=== PATIENT | male | born 1950 | race Two or more races ===

== ENCOUNTER 2017-11-08 08:02 | Outpatient (CLI) | payer OTHER | END 2017-11-08 08:12 | disposition home or self-care (01) | LOC: LAB 08:02 | DX: D72.1 Eosinophilia (principal); D51.3 Other dietary vitamin B12 deficiency anemia; K51.419 Inflammatory polyps of colon with unspecified complications; C44.501 Unspecified malignant neoplasm of skin of breast; E04.8 Other specified nontoxic goiter; E03.8 Other specified hypothyroidism; M06.4 Inflammatory polyarthropathy; K75.89 Other specified inflammatory liver diseases; R94.5 Abnormal results of liver function studies; K76.89 Other specified diseases of liver; D50.8 Other iron deficiency anemias; I10 Essential (primary) hypertension; R97.0 Elevated carcinoembryonic antigen [CEA] ==

== ENCOUNTER 2018-03-15 08:33 | Outpatient (CLI) | payer OTHER | END 2018-03-15 09:03 | disposition home or self-care (01) | LOC: LAB 08:33 | DX: D72.1 Eosinophilia (principal); D51.3 Other dietary vitamin B12 deficiency anemia; K51.419 Inflammatory polyps of colon with unspecified complications; C44.501 Unspecified malignant neoplasm of skin of breast; E04.8 Other specified nontoxic goiter; E03.8 Other specified hypothyroidism; M06.4 Inflammatory polyarthropathy; K75.89 Other specified inflammatory liver diseases; R94.5 Abnormal results of liver function studies; D50.0 Iron deficiency anemia secondary to blood loss (chronic); D51.1 Vitamin B12 deficiency anemia due to selective vitamin B12 malabsorption with proteinuria; I10 Essential (primary) hypertension; E55.9 Vitamin D deficiency, unspecified; K90.89 Other intestinal malabsorption; R97.0 Elevated carcinoembryonic antigen [CEA]; R97.8 Other abnormal tumor markers; N34.0 Urethral abscess; K76.89 Other specified diseases of liver ==

== ENCOUNTER 2018-11-12 07:50 | Outpatient (CLI) | payer OTHER | END 2018-11-12 08:15 | disposition home or self-care (01) | LOC: LAB 07:50 | DX: D72.1 Eosinophilia (principal); D51.3 Other dietary vitamin B12 deficiency anemia; K51.419 Inflammatory polyps of colon with unspecified complications; C44.501 Unspecified malignant neoplasm of skin of breast; E04.8 Other specified nontoxic goiter; E03.8 Other specified hypothyroidism; M06.4 Inflammatory polyarthropathy; K75.89 Other specified inflammatory liver diseases; D04.21 Carcinoma in situ of skin of right ear and external auricular canal; D50.8 Other iron deficiency anemias; D51.8 Other vitamin B12 deficiency anemias; I10 Essential (primary) hypertension; R97.0 Elevated carcinoembryonic antigen [CEA]; R97.8 Other abnormal tumor markers ==

== ENCOUNTER 2019-03-18 08:01 | Outpatient (CLI) | payer OTHER | END 2019-03-18 08:09 | disposition home or self-care (01) | LOC: LAB 08:01 | DX: C44.222 Squamous cell carcinoma of skin of right ear and external auricular canal (principal); D72.1 Eosinophilia; D51.3 Other dietary vitamin B12 deficiency anemia; K51.419 Inflammatory polyps of colon with unspecified complications; C44.501 Unspecified malignant neoplasm of skin of breast; E04.8 Other specified nontoxic goiter; E03.8 Other specified hypothyroidism; M06.4 Inflammatory polyarthropathy; K75.89 Other specified inflammatory liver diseases; R94.5 Abnormal results of liver function studies; I10 Essential (primary) hypertension ==

== ENCOUNTER 2019-07-16 09:45 | Outpatient (CLI) | payer OTHER | END 2019-07-16 15:00 | disposition home or self-care (01) | LOC: LAB 09:45 | DX: C44.222 Squamous cell carcinoma of skin of right ear and external auricular canal (principal); D72.1 Eosinophilia; D51.3 Other dietary vitamin B12 deficiency anemia; K51.418 Inflammatory polyps of colon with other complication; C44.501 Unspecified malignant neoplasm of skin of breast; E04.8 Other specified nontoxic goiter; E03.8 Other specified hypothyroidism; M06.4 Inflammatory polyarthropathy; K75.89 Other specified inflammatory liver diseases; R94.5 Abnormal results of liver function studies; K76.89 Other specified diseases of liver; D50.8 Other iron deficiency anemias; D51.8 Other vitamin B12 deficiency anemias; I10 Essential (primary) hypertension; R97.0 Elevated carcinoembryonic antigen [CEA] ==

== ENCOUNTER 2020-03-04 08:21 | Outpatient (CLI) | payer OTHER | END 2020-03-04 08:24 | disposition home or self-care (01) | LOC: NUCLEAR 08:21 | PROVIDERS: ATTEND Internal Medicine Hematology & Oncology | DX: C44.222 Squamous cell carcinoma of skin of right ear and external auricular canal (principal); C72.1 Malignant neoplasm of cauda equina; Z79.52 Long term (current) use of systemic steroids; D51.3 Other dietary vitamin B12 deficiency anemia; K51.418 Inflammatory polyps of colon with other complication; C44.501 Unspecified malignant neoplasm of skin of breast; E04.8 Other specified nontoxic goiter; E03.8 Other specified hypothyroidism; M06.4 Inflammatory polyarthropathy; K75.89 Other specified inflammatory liver diseases; R94.5 Abnormal results of liver function studies; K76.89 Other specified diseases of liver | CPT/HCPCS: 78816; A9552 ==

== ENCOUNTER 2020-07-06 08:53 | Outpatient (CLI) | payer OTHER | END 2020-07-06 09:01 | disposition home or self-care (01) | LOC: LAB 08:53 | PROVIDERS: ATTEND Internal Medicine Hematology & Oncology | DX: D50.8 Other iron deficiency anemias (principal); I10 Essential (primary) hypertension; D51.8 Other vitamin B12 deficiency anemias; E78.2 Mixed hyperlipidemia; R74.8 Abnormal levels of other serum enzymes; K76.9 Liver disease, unspecified; E03.8 Other specified hypothyroidism; C44.222 Squamous cell carcinoma of skin of right ear and external auricular canal; Z79.52 Long term (current) use of systemic steroids; K51.419 Inflammatory polyps of colon with unspecified complications; C44.501 Unspecified malignant neoplasm of skin of breast; E04.8 Other specified nontoxic goiter; M06.4 Inflammatory polyarthropathy; K75.89 Other specified inflammatory liver diseases; R94.5 Abnormal results of liver function studies; K76.89 Other specified diseases of liver ==

== ENCOUNTER 2020-07-27 10:00 | Outpatient (CLI) | payer OTHER | END 2020-07-27 10:07 | disposition home or self-care (01) | LOC: LAB 10:00 | PROVIDERS: ATTEND Internal Medicine Cardiovascular Disease | DX: I11.9 Hypertensive heart disease without heart failure (principal); E78.00 Pure hypercholesterolemia, unspecified ==

== ENCOUNTER → 2020-10-22 | Outpatient (CLI) | payer OTHER | END | disposition home or self-care (01) | LOC: LAB 10:01 | PROVIDERS: ATTEND Internal Medicine Hematology & Oncology | DX: I10 Essential (primary) hypertension (principal); I25.10 Atherosclerotic heart disease of native coronary artery without angina pectoris; D50.8 Other iron deficiency anemias; R79.89 Other specified abnormal findings of blood chemistry; R74.02 Elevation of levels of lactic acid dehydrogenase [LDH]; K76.89 Other specified diseases of liver; D51.8 Other vitamin B12 deficiency anemias; E03.8 Other specified hypothyroidism; C44.222 Squamous cell carcinoma of skin of right ear and external auricular canal; D72.19 Other eosinophilia; Z79.52 Long term (current) use of systemic steroids; K51.419 Inflammatory polyps of colon with unspecified complications; C44.501 Unspecified malignant neoplasm of skin of breast; E04.8 Other specified nontoxic goiter; M06.4 Inflammatory polyarthropathy; K75.89 Other specified inflammatory liver diseases; R94.5 Abnormal results of liver function studies ==

== ENCOUNTER 2020-11-17 09:34 | Outpatient (CLI) | payer OTHER | END 2020-11-17 09:40 | disposition home or self-care (01) | LOC: LAB 09:34 | PROVIDERS: ATTEND Internal Medicine Cardiovascular Disease | DX: E11.9 Type 2 diabetes mellitus without complications (principal); E78.1 Pure hyperglyceridemia; I11.9 Hypertensive heart disease without heart failure ==

== ENCOUNTER → 2021-01-27 08:32 | Outpatient (CLI) | payer OTHER | END | disposition home or self-care (01) | LOC: LAB 08:32 | PROVIDERS: ATTEND Internal Medicine Hematology & Oncology | DX: D50.8 Other iron deficiency anemias (principal); R79.89 Other specified abnormal findings of blood chemistry; I10 Essential (primary) hypertension; R74.02 Elevation of levels of lactic acid dehydrogenase [LDH]; K76.89 Other specified diseases of liver; D51.8 Other vitamin B12 deficiency anemias; E03.8 Other specified hypothyroidism; R97.0 Elevated carcinoembryonic antigen [CEA]; R97.8 Other abnormal tumor markers; R97.20 Elevated prostate specific antigen [PSA]; C44.222 Squamous cell carcinoma of skin of right ear and external auricular canal; D72.19 Other eosinophilia; Z79.52 Long term (current) use of systemic steroids; D51.3 Other dietary vitamin B12 deficiency anemia; K51.419 Inflammatory polyps of colon with unspecified complications; C44.501 Unspecified malignant neoplasm of skin of breast; E04.8 Other specified nontoxic goiter; M06.4 Inflammatory polyarthropathy; K75.89 Other specified inflammatory liver diseases; R94.5 Abnormal results of liver function studies; I25.10 Atherosclerotic heart disease of native coronary artery without angina pectoris ==

== ENCOUNTER 2021-06-11 10:09 | Outpatient (CLI) | payer OTHER | END 2021-06-11 15:00 | disposition home or self-care (01) | LOC: LAB 10:09 | PROVIDERS: ATTEND Internal Medicine Hematology & Oncology | DX: C44.222 Squamous cell carcinoma of skin of right ear and external auricular canal (principal); D72.10 Eosinophilia, unspecified; Z79.52 Long term (current) use of systemic steroids; D51.3 Other dietary vitamin B12 deficiency anemia; K51.419 Inflammatory polyps of colon with unspecified complications; C44.501 Unspecified malignant neoplasm of skin of breast; E04.1 Nontoxic single thyroid nodule; E04.8 Other specified nontoxic goiter; E03.8 Other specified hypothyroidism; M06.4 Inflammatory polyarthropathy; K75.89 Other specified inflammatory liver diseases; R94.5 Abnormal results of liver function studies; K76.89 Other specified diseases of liver; I25.10 Atherosclerotic heart disease of native coronary artery without angina pectoris; M81.0 Age-related osteoporosis without current pathological fracture; R79.89 Other specified abnormal findings of blood chemistry; D50.8 Other iron deficiency anemias; R74.02 Elevation of levels of lactic acid dehydrogenase [LDH]; I10 Essential (primary) hypertension; D51.8 Other vitamin B12 deficiency anemias; E55.9 Vitamin D deficiency, unspecified; R97.0 Elevated carcinoembryonic antigen [CEA]; R97.8 Other abnormal tumor markers ==

== ENCOUNTER 2021-07-19 10:16 | Outpatient (CLI) | payer OTHER | END 2021-07-19 10:24 | disposition home or self-care (01) | LOC: LAB 10:16 | PROVIDERS: ATTEND Internal Medicine Cardiovascular Disease | DX: E03.8 Other specified hypothyroidism (principal); E78.2 Mixed hyperlipidemia; I11.9 Hypertensive heart disease without heart failure ==

== ENCOUNTER 2021-11-11 11:30 | Outpatient (CLI) | payer OTHER | END 2021-11-11 11:31 | disposition home or self-care (01) | LOC: LAB 11:30 | PROVIDERS: ATTEND Internal Medicine Hematology & Oncology | DX: D50.8 Other iron deficiency anemias (principal); R79.9 Abnormal finding of blood chemistry, unspecified; I10 Essential (primary) hypertension; R74.02 Elevation of levels of lactic acid dehydrogenase [LDH]; K76.89 Other specified diseases of liver; D51.8 Other vitamin B12 deficiency anemias; E03.8 Other specified hypothyroidism; R97.0 Elevated carcinoembryonic antigen [CEA]; R97.8 Other abnormal tumor markers; C44.222 Squamous cell carcinoma of skin of right ear and external auricular canal; D72.19 Other eosinophilia; Z79.52 Long term (current) use of systemic steroids; D51.3 Other dietary vitamin B12 deficiency anemia; K51.419 Inflammatory polyps of colon with unspecified complications; C44.501 Unspecified malignant neoplasm of skin of breast; E04.9 Nontoxic goiter, unspecified; M06.4 Inflammatory polyarthropathy; K75.9 Inflammatory liver disease, unspecified; R94.5 Abnormal results of liver function studies; K76.9 Liver disease, unspecified; I25.10 Atherosclerotic heart disease of native coronary artery without angina pectoris; M81.0 Age-related osteoporosis without current pathological fracture ==

== ENCOUNTER 2022-01-18 08:45 | Outpatient (CLI) | payer OTHER | END 2022-01-18 08:46 | disposition home or self-care (01) | LOC: LAB 08:45 | PROVIDERS: ATTEND Internal Medicine Cardiovascular Disease | DX: I11.9 Hypertensive heart disease without heart failure (principal); E78.00 Pure hypercholesterolemia, unspecified ==

== ENCOUNTER 2022-05-11 08:59 | Outpatient (CLI) | payer OTHER | END 2022-05-11 09:00 | disposition home or self-care (01) | LOC: LAB 08:59 | PROVIDERS: ATTEND Internal Medicine Hematology & Oncology | DX: D50.8 Other iron deficiency anemias (principal); R79.9 Abnormal finding of blood chemistry, unspecified; I10 Essential (primary) hypertension; R74.02 Elevation of levels of lactic acid dehydrogenase [LDH]; K76.89 Other specified diseases of liver; D51.8 Other vitamin B12 deficiency anemias; E55.9 Vitamin D deficiency, unspecified; E03.8 Other specified hypothyroidism; R97.0 Elevated carcinoembryonic antigen [CEA]; R97.8 Other abnormal tumor markers; R97.20 Elevated prostate specific antigen [PSA] ==

== ENCOUNTER 2022-06-01 11:25 | Outpatient (CLI) | payer OTHER | END 2022-06-01 23:00 | disposition home or self-care (01) | LOC: LAB 11:25 | PROVIDERS: ATTEND Internal Medicine Cardiovascular Disease | DX: E11.9 Type 2 diabetes mellitus without complications (principal); E78.00 Pure hypercholesterolemia, unspecified ==

== ENCOUNTER 2022-11-11 07:29 | Outpatient (CLI) | payer OTHER | END 2022-11-11 07:35 | disposition home or self-care (01) | LOC: LAB 07:29 | PROVIDERS: ATTEND Internal Medicine Hematology & Oncology | DX: D50.8 Other iron deficiency anemias (principal); R79.9 Abnormal finding of blood chemistry, unspecified; I10 Essential (primary) hypertension; R74.02 Elevation of levels of lactic acid dehydrogenase [LDH]; K76.89 Other specified diseases of liver; D51.8 Other vitamin B12 deficiency anemias; E55.9 Vitamin D deficiency, unspecified; E03.8 Other specified hypothyroidism; R97.0 Elevated carcinoembryonic antigen [CEA]; R97.8 Other abnormal tumor markers; R97.20 Elevated prostate specific antigen [PSA]; C44.222 Squamous cell carcinoma of skin of right ear and external auricular canal; D72.19 Other eosinophilia; Z79.52 Long term (current) use of systemic steroids; D51.3 Other dietary vitamin B12 deficiency anemia; K51.419 Inflammatory polyps of colon with unspecified complications; C44.501 Unspecified malignant neoplasm of skin of breast; E04.9 Nontoxic goiter, unspecified; M06.4 Inflammatory polyarthropathy; K75.9 Inflammatory liver disease, unspecified; R94.5 Abnormal results of liver function studies; K76.9 Liver disease, unspecified; I25.10 Atherosclerotic heart disease of native coronary artery without angina pectoris; M81.0 Age-related osteoporosis without current pathological fracture ==

== ENCOUNTER 2022-12-29 10:33 | Outpatient (CLI) | payer OTHER | END 2022-12-29 10:34 | disposition home or self-care (01) | LOC: LAB 10:33 | PROVIDERS: ATTEND Internal Medicine Cardiovascular Disease | DX: E78.1 Pure hyperglyceridemia (principal); I11.9 Hypertensive heart disease without heart failure ==

== ENCOUNTER 2023-04-26 08:58 | Outpatient (CLI) | payer OTHER ==
[2023-04-26 09:57] LABS: HEMATOCRIT 36.2 % (39.0-48.0); HEMOGLOBIN 12.4 g/dL (13-16.00); MEAN CELL VOLUME 92.7 fL (80.0-100.00); MEAN CORPUSCULAR HEMOGLOBIN 31.8 pg (27.00-32.0); MEAN CORPUSCULAR HGB CONC 34.3 g/dl (32.0-36.0); PLATELET COUNT 248 K/uL (150-450); RED CELL DISTRIBUTION WIDTH 13.9 % (11.5-14.5)
[2023-04-26 10:32] LABS: CALCIUM 9.7 mg/dL (8.5-10.1); CREATININE SERUM 0.58 mg/dL (0.70-1.30); GFR 136.96; POTASSIUM 4.18 mEq/L (3.5-5.1)
== END 2023-04-26 08:59 | disposition home or self-care (01) ==
LOC: LAB 08:58
PROVIDERS: ATTEND Internal Medicine Cardiovascular Disease
DX: R19.5 Other fecal abnormalities (principal)

== ENCOUNTER → 2023-04-27 08:07 | Outpatient (CLI) | payer OTHER ==
[2023-04-27 11:10] LABS: ob NEGATIVE (NEGATIVE)
== END | disposition home or self-care (01) ==
LOC: LAB 08:07
PROVIDERS: ATTEND Internal Medicine Cardiovascular Disease
DX: R19.5 Other fecal abnormalities (principal)

== ENCOUNTER → 2023-05-10 09:00 | Outpatient (CLI) | payer OTHER ==
[2023-05-10 10:33] LABS: HEMOGLOBIN 12.6 g/dL (13-16.00); MEAN CELL VOLUME 91.8 fL (80.0-100.00); MEAN CORPUSCULAR HEMOGLOBIN 31.3 pg (27.00-32.0); MEAN CORPUSCULAR HGB CONC 34.1 g/dl (32.0-36.0); PLATELET COUNT 240 K/uL (150-450); RED BLOOD COUNT 4.04 M/uL (4.00-6.00); RED CELL DISTRIBUTION WIDTH 13.8 % (11.5-14.5)
[2023-05-10 11:32] LABS: ALBUMIN 3.9 gm/dL (3.4-5.0); BILIRUBIN TOTAL 0.66 mg/dL (0.3-1.2); BILIRUBIN,CONJUGATED 0.19 mg/dL (0.0-0.2); BILIRUBIN,UNCONJUGATED 0.47 mg/dL (0.0-0.6); CALCIUM 9.7 mg/dL (8.5-10.1); CREATININE SERUM 0.62 mg/dL (0.70-1.30); GFR 126.81; POTASSIUM 3.97 mEq/L (3.5-5.1); PROSTATIC SPECIFIC ANTIGEN 0.245 NG/ML (0.010-4.00); T4 FREE 1.14 NG/ML (0.76-1.46); TOTAL PROTEIN 7.6 gm/dL (6.4-8.2); TSH 1.14 uIU/mL (0.358-3.74); VITAMIN D3 25 HYDROXY 99.31 ng/ml (30-120)
== END | disposition home or self-care (01) ==
LOC: LAB 09:00
PROVIDERS: ATTEND Internal Medicine Hematology & Oncology
DX: D50.8 Other iron deficiency anemias (principal); R79.9 Abnormal finding of blood chemistry, unspecified; I10 Essential (primary) hypertension; R74.02 Elevation of levels of lactic acid dehydrogenase [LDH]; K76.89 Other specified diseases of liver; D51.8 Other vitamin B12 deficiency anemias; E55.9 Vitamin D deficiency, unspecified; E03.8 Other specified hypothyroidism; R97.0 Elevated carcinoembryonic antigen [CEA]; R97.8 Other abnormal tumor markers; R97.20 Elevated prostate specific antigen [PSA]; C44.222 Squamous cell carcinoma of skin of right ear and external auricular canal; Z79.52 Long term (current) use of systemic steroids; D51.3 Other dietary vitamin B12 deficiency anemia; K51.419 Inflammatory polyps of colon with unspecified complications; C44.501 Unspecified malignant neoplasm of skin of breast; E04.9 Nontoxic goiter, unspecified; M06.4 Inflammatory polyarthropathy; K75.9 Inflammatory liver disease, unspecified; R94.5 Abnormal results of liver function studies; K76.9 Liver disease, unspecified; I25.10 Atherosclerotic heart disease of native coronary artery without angina pectoris; M81.0 Age-related osteoporosis without current pathological fracture

== ENCOUNTER 2023-06-09 07:38 | Outpatient (CLI) | payer OTHER | END 2023-06-09 07:40 | disposition home or self-care (01) | LOC: NUCLEAR 07:38 | PROVIDERS: ATTEND Internal Medicine Hematology & Oncology | DX: C44.222 Squamous cell carcinoma of skin of right ear and external auricular canal (principal); D72.10 Eosinophilia, unspecified; Z79.52 Long term (current) use of systemic steroids; D51.3 Other dietary vitamin B12 deficiency anemia; K51.419 Inflammatory polyps of colon with unspecified complications; C44.501 Unspecified malignant neoplasm of skin of breast; E03.8 Other specified hypothyroidism; E04.9 Nontoxic goiter, unspecified; M06.4 Inflammatory polyarthropathy; K75.9 Inflammatory liver disease, unspecified; R94.5 Abnormal results of liver function studies; K76.9 Liver disease, unspecified; I25.10 Atherosclerotic heart disease of native coronary artery without angina pectoris; M81.0 Age-related osteoporosis without current pathological fracture | CPT/HCPCS: 78816; A9552 ==

== ENCOUNTER 2023-07-10 08:10 | Outpatient (CLI) | payer OTHER ==
[2023-07-10 10:11] LABS: ob NEGATIVE (NEGATIVE)
== END 2023-07-10 08:11 | disposition home or self-care (01) ==
LOC: LAB 08:10
PROVIDERS: ATTEND Internal Medicine
DX: Z12.11 Encounter for screening for malignant neoplasm of colon (principal)

== ENCOUNTER 2023-07-10 08:36 | Outpatient (CLI) | payer OTHER | END 2023-07-10 08:46 | disposition home or self-care (01) | LOC: SONOGRAMA 08:36 | PROVIDERS: ATTEND Internal Medicine | DX: R10.84 Generalized abdominal pain (principal) ==

== ENCOUNTER 2023-07-12 12:10 | Outpatient (CLI) | payer OTHER ==
[2023-07-12 13:24] LABS: HEMATOCRIT 36.3 % (39.0-48.0); HEMOGLOBIN 12.6 g/dL (13-16.00); MEAN CELL VOLUME 93.5 fL (80.0-100.00); MEAN CORPUSCULAR HEMOGLOBIN 32.3 pg (27.00-32.0); MEAN CORPUSCULAR HGB CONC 34.6 g/dl (32.0-36.0); PLATELET COUNT 246 K/uL (150-450); RED BLOOD COUNT 3.88 M/uL (4.00-6.00); RED CELL DISTRIBUTION WIDTH 13.7 % (11.5-14.5)
[2023-07-12 14:20] LABS: ALBUMIN 4.1 gm/dL (3.4-5.0); BILIRUBIN TOTAL 0.64 mg/dL (0.3-1.2); CALCIUM 10.1 mg/dL (8.5-10.1); CHOL HDL RATIO 2.5 (0-5.0); CREATININE SERUM 0.64 mg/dL (0.70-1.30); GFR 122.25; GLOBULINA 3.6 G/DL (2.4-3.5); POTASSIUM 4.63 mEq/L (3.5-5.1); TOTAL PROTEIN 7.7 gm/dL (6.4-8.2)
== END 2023-07-12 12:14 | disposition home or self-care (01) ==
LOC: LAB 12:10
PROVIDERS: ATTEND Internal Medicine Cardiovascular Disease
DX: I11.9 Hypertensive heart disease without heart failure (principal); E11.9 Type 2 diabetes mellitus without complications; E78.1 Pure hyperglyceridemia

== ENCOUNTER → 2023-07-18 11:18 | Outpatient (CLI) | payer OTHER ==
[2023-07-18 12:11] LABS: HEMATOCRIT 36.8 % (39.0-48.0); HEMOGLOBIN 12.6 g/dL (13-16.00); MEAN CELL VOLUME 93.8 fL (80.0-100.00); MEAN CORPUSCULAR HGB CONC 34.2 g/dl (32.0-36.0); PLATELET COUNT 247 K/uL (150-450); RED BLOOD COUNT 3.92 M/uL (4.00-6.00); RED CELL DISTRIBUTION WIDTH 13.8 % (11.5-14.5)
[2023-07-18 12:34] LABS: ALBUMIN 3.9 gm/dL (3.4-5.0); BILIRUBIN TOTAL 0.65 mg/dL (0.3-1.2); BILIRUBIN,CONJUGATED 0.16 mg/dL (0.0-0.2); BILIRUBIN,UNCONJUGATED 0.49 mg/dL (0.0-0.6); CALCIUM 9.9 mg/dL (8.5-10.1); CREATININE SERUM 0.57 mg/dL (0.70-1.30); GFR 139.73; TOTAL PROTEIN 7.5 gm/dL (6.4-8.2)
[2023-07-18 13:41] LABS: FOLIC ACID > 20.00 ng/ml (4.78-20)
== END | disposition home or self-care (01) ==
LOC: LAB 11:18
PROVIDERS: ATTEND Internal Medicine Hematology & Oncology
DX: C44.222 Squamous cell carcinoma of skin of right ear and external auricular canal (principal); D72.19 Other eosinophilia; Z79.52 Long term (current) use of systemic steroids; D51.9 Vitamin B12 deficiency anemia, unspecified; K51.419 Inflammatory polyps of colon with unspecified complications; C44.501 Unspecified malignant neoplasm of skin of breast; E04.9 Nontoxic goiter, unspecified; E03.8 Other specified hypothyroidism; M06.4 Inflammatory polyarthropathy; R94.5 Abnormal results of liver function studies; K76.4 Peliosis hepatis; I25.10 Atherosclerotic heart disease of native coronary artery without angina pectoris; M81.0 Age-related osteoporosis without current pathological fracture; D72.10 Eosinophilia, unspecified

== ENCOUNTER → 2024-02-01 08:57 | Outpatient (CLI) | payer OTHER ==
[2024-02-01 09:58] LABS: HEMATOCRIT 35.2 % (39.0-48.0); HEMOGLOBIN 12.1 g/dL (13-16.00); MEAN CELL VOLUME 92.8 fL (80.0-100.00); MEAN CORPUSCULAR HEMOGLOBIN 31.9 pg (27.00-32.0); MEAN CORPUSCULAR HGB CONC 34.4 g/dl (32.0-36.0); PLATELET COUNT 229 K/uL (150-450); RED CELL DISTRIBUTION WIDTH 13.6 % (11.5-14.5)
[2024-02-01 10:31] LABS: ALBUMIN 3.9 gm/dL (3.4-5.0); BILIRUBIN TOTAL 0.65 mg/dL (0.3-1.2); BILIRUBIN,CONJUGATED 0.19 mg/dL (0.0-0.2); BILIRUBIN,UNCONJUGATED 0.46 mg/dL (0.0-0.6); CALCIUM 9.8 mg/dL (8.5-10.1); CREATININE SERUM 0.68 mg/dL (0.70-1.30); GFR 113.99; POTASSIUM 3.89 mEq/L (3.5-5.1); PROSTATIC SPECIFIC ANTIGEN 0.244 NG/ML (0.010-4.00); TOTAL PROTEIN 7.7 gm/dL (6.4-8.2)
[2024-02-01 11:55] LABS: FOLIC ACID > 20.00 ng/ml (4.78-20)
== END | disposition home or self-care (01) ==
LOC: LAB 08:57
PROVIDERS: ATTEND Internal Medicine Hematology & Oncology
DX: C44.222 Squamous cell carcinoma of skin of right ear and external auricular canal (principal); D72.10 Eosinophilia, unspecified; Z79.52 Long term (current) use of systemic steroids; D51.3 Other dietary vitamin B12 deficiency anemia; K51.419 Inflammatory polyps of colon with unspecified complications; C44.501 Unspecified malignant neoplasm of skin of breast; E04.9 Nontoxic goiter, unspecified; E03.8 Other specified hypothyroidism; M06.4 Inflammatory polyarthropathy; K75.9 Inflammatory liver disease, unspecified; I25.10 Atherosclerotic heart disease of native coronary artery without angina pectoris; M81.0 Age-related osteoporosis without current pathological fracture; D50.8 Other iron deficiency anemias; R74.02 Elevation of levels of lactic acid dehydrogenase [LDH]; K76.89 Other specified diseases of liver; I10 Essential (primary) hypertension; E55.9 Vitamin D deficiency, unspecified; R97.0 Elevated carcinoembryonic antigen [CEA]

== ENCOUNTER → 2024-04-29 10:02 | Outpatient (CLI) | payer OTHER ==
[2024-04-29 11:12] LABS: HEMATOCRIT 36.6 % (39.0-48.0); HEMOGLOBIN 12.6 g/dL (13-16.00); MEAN CELL VOLUME 93.1 fL (80.0-100.00); MEAN CORPUSCULAR HEMOGLOBIN 31.9 pg (27.00-32.0); MEAN CORPUSCULAR HGB CONC 34.3 g/dl (32.0-36.0); PLATELET COUNT 254 K/uL (150-450); RED BLOOD COUNT 3.93 M/uL (4.00-6.00); RED CELL DISTRIBUTION WIDTH 13.5 % (11.5-14.5)
[2024-04-29 11:56] LABS: ALBUMIN 3.9 gm/dL (3.4-5.0); BILIRUBIN TOTAL 0.61 mg/dL (0.3-1.2); CALCIUM 9.4 mg/dL (8.5-10.1); CHOL HDL RATIO 2.2 (0-5.0); CREATININE SERUM 0.6 mg/dL (0.70-1.30); GFR 131.34; GLOBULINA 3.6 G/DL (2.4-3.5); POTASSIUM 4.17 mEq/L (3.5-5.1); TOTAL PROTEIN 7.5 gm/dL (6.4-8.2); TSH 1.97 uIU/mL (0.358-3.74)
== END | disposition home or self-care (01) ==
LOC: LAB 10:02
PROVIDERS: ATTEND Internal Medicine Cardiovascular Disease
DX: E11.9 Type 2 diabetes mellitus without complications (principal); E78.9 Disorder of lipoprotein metabolism, unspecified; I11.9 Hypertensive heart disease without heart failure

== ENCOUNTER → 2024-08-09 11:06 | Outpatient (CLI) | payer OTHER ==
[2024-08-09 12:03] LABS: HEMATOCRIT 38.6 % (39.0-48.0); MEAN CELL VOLUME 94.2 fL (80.0-100.00); MEAN CORPUSCULAR HEMOGLOBIN 31.7 pg (27.00-32.0); MEAN CORPUSCULAR HGB CONC 33.6 g/dl (32.0-36.0); PLATELET COUNT 319 K/uL (150-450); RED CELL DISTRIBUTION WIDTH 12.8 % (11.5-14.5)
[2024-08-09 12:45] LABS: BILIRUBIN TOTAL 0.62 mg/dL (0.3-1.2); BILIRUBIN,CONJUGATED 0.17 mg/dL (0.0-0.2); BILIRUBIN,UNCONJUGATED 0.45 mg/dL (0.0-0.6); CREATININE SERUM 0.69 mg/dL (0.70-1.30); GFR 111.78; POTASSIUM 4.07 mEq/L (3.5-5.1); PROSTATIC SPECIFIC ANTIGEN 0.084 NG/ML (0.010-4.00); TOTAL PROTEIN 7.9 gm/dL (6.4-8.2)
[2024-08-09 13:34] LABS: FOLIC ACID > 20.00 ng/ml (4.78-20)
[2024-08-09 13:59] LABS: MANUAL PLATELET COUNT 346
[2024-08-09 14:00] LABS: PLATELET ESTIMATE NORMAL (NORMAL)
== END | disposition home or self-care (01) ==
LOC: LAB 11:06
PROVIDERS: ATTEND Internal Medicine Hematology & Oncology
DX: C44.222 Squamous cell carcinoma of skin of right ear and external auricular canal (principal); D72.10 Eosinophilia, unspecified; Z79.52 Long term (current) use of systemic steroids; D51.3 Other dietary vitamin B12 deficiency anemia; K51.419 Inflammatory polyps of colon with unspecified complications; C44.501 Unspecified malignant neoplasm of skin of breast; E04.9 Nontoxic goiter, unspecified; E03.8 Other specified hypothyroidism; M06.4 Inflammatory polyarthropathy; K75.9 Inflammatory liver disease, unspecified; R94.5 Abnormal results of liver function studies; K76.9 Liver disease, unspecified; I25.10 Atherosclerotic heart disease of native coronary artery without angina pectoris; M81.0 Age-related osteoporosis without current pathological fracture; D50.8 Other iron deficiency anemias; R79.9 Abnormal finding of blood chemistry, unspecified; I10 Essential (primary) hypertension; R74.02 Elevation of levels of lactic acid dehydrogenase [LDH]; K76.89 Other specified diseases of liver; D51.8 Other vitamin B12 deficiency anemias; E55.9 Vitamin D deficiency, unspecified; R97.0 Elevated carcinoembryonic antigen [CEA]

== ENCOUNTER 2024-11-28 08:05 | Outpatient (CLI) | payer OTHER ==
[2024-11-28 08:39] LABS: BASO % 0.8 % (0.1-1.2); EOS # 0.62 (0.04-0.54); EOS % 9.6 % (0.7-7.0); HEMATOCRIT 35.8 % (40.1-51.0); HEMOGLOBIN 12.4 g/dL (13.7-17.5); LYMPH # 1.94 (1.18-3.74); MEAN CORPUSCULAR HEMOGLOBIN 32.1 pg (25.6-32.2); MONO # 0.63 (0.24-0.82); MONO % 9.7 % (4.7-12.5); NEUT # 3.22 (1.56-6.13); NEUT % 49.7 % (34.0-71.1); PLATELET COUNT 212 K/uL (163-369); RED BLOOD COUNT 3.86 M/uL (4.63-6.08); RED CELL DISTRIBUTION WIDTH 12.5 % (11.6-14.4)
[2024-11-28 09:43] LABS: ALBUMIN 3.9 gm/dL (3.4-5.0); BILIRUBIN TOTAL 0.5 mg/dL (0.3-1.2); BILIRUBIN,CONJUGATED 0.18 mg/dL (0.0-0.2); BILIRUBIN,UNCONJUGATED 0.32 mg/dL (0.0-0.6); CALCIUM 9.8 mg/dL (8.5-10.1); CREATININE SERUM 0.73 mg/dL (0.70-1.30); GFR 104.74; POTASSIUM 4.47 mEq/L (3.5-5.1); TOTAL PROTEIN 7.8 gm/dL (6.4-8.2); TSH 2.98 uIU/mL (0.358-3.74)
[2024-11-28 10:03] LABS: PROSTATIC SPECIFIC ANTIGEN 0.046 NG/ML (0.010-4.00); T4 FREE 1.06 NG/ML (0.76-1.46)
[2024-11-28 12:02] LABS: FOLIC ACID > 20.00 ng/ml (4.78-20); VITAMIN D3 25 HYDROXY 90.61 ng/ml (30-120)
== END 2024-11-28 08:06 | disposition home or self-care (01) ==
LOC: LAB 08:05
PROVIDERS: ATTEND Internal Medicine Hematology & Oncology
DX: D50.8 Other iron deficiency anemias (principal); R79.9 Abnormal finding of blood chemistry, unspecified; I10 Essential (primary) hypertension; R74.02 Elevation of levels of lactic acid dehydrogenase [LDH]; K76.89 Other specified diseases of liver; D51.8 Other vitamin B12 deficiency anemias; E55.9 Vitamin D deficiency, unspecified; Z13.29 Encounter for screening for other suspected endocrine disorder; R97.0 Elevated carcinoembryonic antigen [CEA]; R97.8 Other abnormal tumor markers; R97.20 Elevated prostate specific antigen [PSA]; E03.8 Other specified hypothyroidism; C44.222 Squamous cell carcinoma of skin of right ear and external auricular canal; D72.10 Eosinophilia, unspecified; Z79.52 Long term (current) use of systemic steroids; D51.3 Other dietary vitamin B12 deficiency anemia; K51.419 Inflammatory polyps of colon with unspecified complications; C44.501 Unspecified malignant neoplasm of skin of breast; E04.9 Nontoxic goiter, unspecified; M06.4 Inflammatory polyarthropathy; K75.9 Inflammatory liver disease, unspecified; R94.5 Abnormal results of liver function studies; K76.9 Liver disease, unspecified; I25.10 Atherosclerotic heart disease of native coronary artery without angina pectoris; M81.0 Age-related osteoporosis without current pathological fracture

== ENCOUNTER 2024-12-13 10:38 | Outpatient (CLI) | payer OTHER | END 2024-12-13 10:40 | disposition home or self-care (01) | LOC: NUCLEAR 10:38 | PROVIDERS: ATTEND Internal Medicine Hematology & Oncology | DX: M81.0 Age-related osteoporosis without current pathological fracture (principal) ==

== ENCOUNTER 2025-04-30 09:03 | Outpatient (CLI) | payer OTHER ==
[2025-04-30 10:08] LABS: BASO % 1.0 % (0.1-1.2); EOS # 0.55 (0.04-0.54); EOS % 7.9 % (0.7-7.0); LYMPH # 1.95 (1.18-3.74); LYMPH % 27.9 % (19.3-53.1); MEAN PLATELET VOLUME 9.60 fl (9.4-12.4); MONO # 0.67 (0.24-0.82); MONO % 9.6 % (4.7-12.5); NEUT # 3.73 (1.56-6.13); NEUT % 53.5 % (34.0-71.1); RED CELL DISTRIBUTION WIDTH 12.2 % (11.6-14.4)
[2025-04-30 10:55] LABS: ALT/SGPT 26.0 U/L (12-78); AST/SGOT 24.0 U/L (15-37); BILIRUBIN TOTAL 0.64 mg/dL (0.3-1.2); BUN CREA RATIO 9.0 (7.0-25.0); CHOL HDL RATIO 2.3 (0-5.0); CREATININE SERUM 0.68 mg/dL (0.70-1.30); GFR 113.37; GLOBULINA 3.8 G/DL (2.4-3.5); GLUCOSE FASTING 94.0 mg/dL (65-100); HDL 54.0 mg/dl (40-60); LDL 54.0 mg/dl (0-130); OSMOLALITY SERUM 280.0 MOSM/KG (275-295); VLDL 15.0 (0-39)
[2025-04-30 11:19] LABS: FOLIC ACID > 20.00 ng/ml (4.78-20)
== END 2025-04-30 11:47 | disposition home or self-care (01) ==
LOC: LAB 09:03
PROVIDERS: ATTEND Internal Medicine Cardiovascular Disease
DX: E78.1 Pure hyperglyceridemia (principal); E11.9 Type 2 diabetes mellitus without complications; I11.9 Hypertensive heart disease without heart failure

== ENCOUNTER 2025-06-06 07:12 | Outpatient (CLI) | payer OTHER | END 2025-06-06 07:13 | disposition home or self-care (01) | LOC: NUCLEAR 07:12 | PROVIDERS: ATTEND Internal Medicine Cardiovascular Disease | DX: I20.9 Angina pectoris, unspecified (principal) | CPT/HCPCS: 78452; 93017; A9500 ==